=== PATIENT | female | born 1975 | race Caucasian/White ===

== ENCOUNTER → 2018-03-26 | Outpatient (CLI) | payer OTHER ==
--- NOTE | 2018-03-26 19:57 | Diagnostic Imaging Report ---
INDICATION: Right breast lump. Correlation is made with diagnostic mammogram earlier the same day. FINDINGS: Right breast: Sonographic interrogation of the palpable abnormality does show a solid, circumscribed, macrolobulated mass at the 12 o'clock location 3 cm from the nipple. This does show some internal vascularity. This measures 1.1 x 0.9 x 0.9 cm. This has some posterior acoustic enhancement and most likely represents a fibroadenoma. A second mass is identified at the 10 o'clock location of the right breast 8 cm from the nipple corresponding to the more posteriorly located circumscribed lesion on mammography. This measures 1.6 x 0.8 x 1.1 cm. This appears to represent a septated cyst. Left breast was evaluated. There is a cyst at the 3:30 location, 4 cm from the nipple corresponding to the density noted on mammogram. This measures 0.9 x 0.5 x 0.9 cm. No internal vascularity is seen. IMPRESSION: Bilateral breast cysts at the 10 o'clock location of the right breast and 3:30 location of the left breast. There is a solid circumscribed macrolobulated nodule at the area of palpable abnormality at the 12 o'clock location of the right breast 3 cm from the nipple. This has features most suggestive of a fibroadenoma. Even so, follow-up bilateral breast ultrasound in six months is recommended to confirm stability. ACR BI-RADS Category 3: Probably benign findings. Dictated by: Dictated on workstation # [id number]
--- NOTE | 2018-03-26 20:02 | Diagnostic Imaging Report ---
INDICATION: Right breast lump. COMPARISON: No prior mammograms are available for comparison. This is a baseline study. EXAMINATION: 2D and 3D bilateral diagnostic mammography was performed with CAD. FINDINGS: Both breasts are heterogeneously dense, limiting the sensitivity of mammography. A BB marker was placed at the area of palpable abnormality of the right breast. There is a circumscribed mass in the upper and inner aspect of the right breast at anterior depth measuring approximately 13 mm in size. This has fairly benign features. There is a second circumscribed mass in the far posterior right breast in its superior aspect likely laterally located, measuring 16 mm. This too appears fairly well-circumscribed and likely benign. Left breast does show a circumscribed mass in the lateral aspect, approximately 9 mm, posterior to the nipple line on this MLO view. This has benign features. No malignant-appearing microcalcifications are seen. The axillae are unremarkable. IMPRESSION: Circumscribed lesions, bilaterally, one of which corresponds to the palpable abnormality in the right breast. These have benign features and are suggestive of either cysts or fibroadenomas. Further evaluation of these areas with ultrasound is recommended. ACR BI-RADS Category 0: Incomplete. (Needs additional imaging evaluation). Result letter will be mailed to the patient. Note: At least 10% of breast cancer is not imaged by mammography. Dictated by: Dictated on workstation # [id number]
== END ==
LOC: RAD 13:19
PROVIDERS: ATTEND Family Medicine
DX: N63.10 Unspecified lump in the right breast, unspecified quadrant (principal); N60.02 Solitary cyst of left breast; N60.01 Solitary cyst of right breast
CPT/HCPCS: 76642; 77066

== ENCOUNTER → 2022-01-05 | Outpatient (CLI) | payer SELFPAY ==
[~2022-01-05] MED LIST: LIDOCAINE 1% INJ 50 ML (XYLOCAINE) VIAL IJ ONE; LIDOCAINE 1% INJ 50 ML (XYLOCAINE) VIAL ONE
--- NOTE | 2022-01-05 11:44 | Diagnostic Imaging Report ---
INDICATION: Right breast nodule. PROCEDURE: The patient presents for ultrasound-guided biopsy. The patient was brought to the sonographic suite and placed on the table in the supine position. Ultrasound imaging of the right breast was performed to evaluate appropriate entry site. The right breast was then prepped and draped in the usual sterile fashion. A small amount of 1% lidocaine was utilized for local anesthesia. Multiple core biopsies were made of a hypoechoic mass with punctate calcifications at the 11:00 location of the right breast, 3 cm from the nipple, utilizing the 13-gauge vacuum-assisted handheld mammotome device. Marker clip was then deployed. Hemostasis was obtained using manual compression. The patient tolerated the procedure well and was sent for a postprocedure mammogram in satisfactory condition. IMPRESSION: Successful ultrasound-guided biopsy of the nodule at the 11:00 location right breast utilizing the hand-held vacuum-assisted mammotome device. Pathology results are currently pending. Dictated by: Dictated on workstation # [id number]
--- NOTE | 2022-01-05 13:29 | Diagnostic Imaging Report ---
INDICATION: Right breast nodule. Patient is status post ultrasound-guided core biopsy. Unilateral right 2-D CC and ML mammography was performed after patient underwent ultrasound-guided biopsy. There is a marker clip in the upper right breast mid depth slightly medial of the nipple line. IMPRESSION: Marker clip, status post ultrasound-guided core biopsy. Dictated by: Dictated on workstation # [id number]
== END ==
LOC: RAD 08:14
PROVIDERS: ATTEND Nurse Practitioner
DX: N63.11 Unspecified lump in the right breast, upper outer quadrant (principal); R92.8 Other abnormal and inconclusive findings on diagnostic imaging of breast
CPT/HCPCS: 19083; 77065; G0279